=== PATIENT | male | born 2000 | race Asian ===

== ENCOUNTER 2025-04-29 06:24 | Outpatient (REF) | payer OTHER, SELFPAY ==
--- NOTE | ~2025-04-29 | US_ITS ---
CLINICAL HISTORY: ABNORMAL RENAL FUNCTION US retroperitoneum with color Doppler Comparison: None Findings: Right kidney normal size and echotexture, 11.3 cm length. No hydronephrosis. Normal color flow. Normal cortical thickness. No renal masses. No nephrolithiasis. Left kidney normal size and echotexture, 11.6 cm in length. No hydronephrosis. Normal color flow. Normal cortical thickness. No renal masses. No nephrolithiasis. Urinary bladder is unremarkable. Prevoid volume 380.0 mL. Postvoid volume 19.2 mL. Ureteral jets are visualized bilaterally Prostate measures 3.7 x 2.5 x 3.5 cm Impression: 1. Normal kidneys. 2. Minimally elevated postvoid residual. 3. Prostate volume measuring 16.7 mL This document has been electronically signed by: Elian Reddy MD on 04/30/2025 11:47:47
== END 2025-04-29 06:25 | disposition home or self-care (01) ==
LOC: HO.UMASIMG 06:24
PROVIDERS: Visit Provider Nurse Practitioner Family
DX: R94.4 Abnormal results of kidney function studies (principal)
CPT/HCPCS: 76770

== ENCOUNTER → 2025-04-29 11:41 | Outpatient (BNV) | payer OTHER, SELFPAY | PROVIDERS: Visit Provider Radiology Diagnostic Radiology | DX: R94.4 Abnormal results of kidney function studies (principal) | CPT/HCPCS: 76770 ==